=== PATIENT | female | born 1990 | race Hispanic/Latino ===

== ENCOUNTER 2019-10-02 10:31 | Emergency (ER) | payer OTHER ==
[2019-10-02 11:06] LABS: #Basophils 0.1 thou/uL (0.0-0.2); #Eosinphils 0.1 thou/uL (0.0-0.7); #Lymphocytes 2.8 thou/uL (1.20-3.40); #Monocytes 0.5 thou/uL (0.11-0.59); #Neutrophils 5.7 thou/uL (1.40-6.50); %Basophils 0.9 % (0.0-1.0); %Eosinophils 0.7 % (0.0-10.0); %Lymphocytes 30.3 % (21.0-51.0); %Monocytes 5.9 % (0.0-10.0); %Neutrophils 62.2 % (42.0-75.0); Hemoglobin 13.2 g/dL (12.0-16.0); Mean Corpuscular HGB CONC 34.5 g/dL (32.0-36.0); Mean Corpuscular Hemoglobin 30.7 pg (27.0-31.0); Mean Corpuscular Volume 88.8 fL (78.0-98.0); Mean Platelet Volume 8.2 fL (7.4-10.4); Platelet Count 240 thou/uL (130-400); RBC Distribution Width 11.9 % (11.5-14.5); White Blood Cell (WBC) Count 9.1 thou/uL (4.8-10.8)
[2019-10-02 11:31] LABS: ALT (SGPT) 26 U/L (8-55); AST (SGOT) 14 U/L (5-34); Albumin 3.7 g/dL (3.5-5.0); Alkaline Phosphatase 53 U/L (40-110); Anion Gap 12 mmol/L (10-20); BUN (Urea Nitrogen) 8 mg/dL (7.0-18.7); Bilirubin, Total 0.3 mg/dL (0.2-1.2); Calc. Creatinine Clearance 0 mL/min (70-130); Calcium 8.6 mg/dL (7.8-10.44); Carbon Dioxide 22 mmol/L (22-29); Chloride 107 mmol/L (98-107); Estimated GFR-MDRD Greater than 90; Globulin 2.6 g/dL (2.4-3.5); Glucose 82 mg/dL (70-105); Protein, Total 6.3 g/dL (6.0-8.3); Sodium 137 mmol/L (136-145)
[2019-10-02] MEDS ORDERED: Acetaminophen 325 MG TAB ONE (11:46)
[2019-10-02 12:04] LABS: Bacteria/HPF 1+ HPF (None Seen); Bilirubin Negative (Negative); Blood, Urine 2+ (Negative); Clarity Clear (Clear); Glucose, Urine (Dipstick) Normal (Negative); Leukocyte Negative Leu/uL (Negative); Nitrite Negative (Negative); Protein, Urine (Dipstick) Negative (Neg-Trace); RBC/HPF Greater than 50 HPF (0-3); Squamous Epithelial 0-3 HPF (0-3); Urobilinogen Normal mg/dL (Less than 2); WBC/HPF 0-3 HPF (0-3)
--- NOTE | 2019-10-02 12:43 | ULT ---
ULTRASOUND PELVIS WITH DOPPLER: Date: 10/02/2019 HISTORY: Vaginal bleeding with . COMPARISON: None. TECHNIQUE: Real-time Junior scale and color Doppler with spectral analysis of the pelvis was performed via transab dominal and transvaginal approach. FINDINGS: There is a single, viable intrauterine . Ultrasound age is 10 weeks and 1 day. Estimated clare e of delivery is 04/28/2020. Yolk sac is visualized measuring 6.0 mm. The heart rate is documen christian at 152 beats/minute. [place]-rump length is 2.92 cm, 9 weeks and 10 days. Gestational sac diameter is 4.88 cm, 10 weeks and 4 days. There is a small to moderate anterior subchorionic hemorrhage. There are right adnexal cysts. Left ov santiago is not visualized. IMPRESSION: 1. Normal single, viable intrauterine as described. 2. Small to moderate anterior subchorionic hemorrhage. POS: HOME
[2019-10-04 20:27] LABS: Chlamydia by PCR Not Detected (NotDetected); GC by PCR Not Detected (NotDetected)
== END 2019-10-02 13:52 | disposition home or self-care (01) ==
LOC: ERS 10:31
DX: O20.8 Other hemorrhage in early pregnancy (principal); O99.341 Other mental disorders complicating pregnancy, first trimester; F41.9 Anxiety disorder, unspecified; Z3A.09 9 weeks gestation of pregnancy
CPT/HCPCS: 36415; 76856; 80053; 81003; 81015; 84702; 85025; 86900; 86901; 87086; 87480; 87491; 87510; 87591; 87660; 88305; 93976

== ENCOUNTER 2019-10-11 01:50 | Observation (INO) | payer MEDICAID, OTHER ==
[2019-10-11] MEDS ORDERED: Ondansetron PF 4 MG/2 ML Vial ONE ×2 (02:20→04:49)
[2019-10-11 02:40] LABS: Bacteria/HPF None Seen HPF (None Seen); Bilirubin Negative (Negative); Blood, Urine Negative (Negative); Clarity Turbid (Clear); Glucose, Urine (Dipstick) Normal (Negative); Leukocyte Negative Leu/uL (Negative); Nitrite Negative (Negative); Protein, Urine (Dipstick) 70 mg/dL (Neg-Trace); RBC/HPF 0-3 HPF (0-3); Squamous Epithelial 0-3 HPF (0-3)
[2019-10-11 02:44] LABS: Mean Corpuscular HGB CONC 33.9 g/dL (32.0-36.0); Mean Corpuscular Hemoglobin 30.2 pg (27.0-31.0); Mean Corpuscular Volume 88.9 fL (78.0-98.0); Mean Platelet Volume 8.2 fL (7.4-10.4); Platelet Count 302 thou/uL (130-400); RBC Distribution Width 12.2 % (11.5-14.5); Red Blood Cell (RBC) Count 4.97 mill/uL (4.20-5.40); White Blood Cell (WBC) Count 21.3 thou/uL (4.8-10.8)
[2019-10-11 02:52] LABS: ALT (SGPT) 31 U/L (8-55); AST (SGOT) 23 U/L (5-34); Albumin 4.2 g/dL (3.5-5.0); Alkaline Phosphatase 63 U/L (40-110); Anion Gap 17 mmol/L (10-20); BUN (Urea Nitrogen) 8 mg/dL (7.0-18.7); Bilirubin, Total 0.3 mg/dL (0.2-1.2); Calc. Creatinine Clearance 0 mL/min (70-130); Calcium 9.3 mg/dL (7.8-10.44); Carbon Dioxide 23 mmol/L (22-29); Chloride 103 mmol/L (98-107); Estimated GFR-MDRD Greater than 90; Globulin 3.1 g/dL (2.4-3.5); Glucose 98 mg/dL (70-105); Potassium 3.6 mmol/L (3.5-5.1); Protein, Total 7.3 g/dL (6.0-8.3); Sodium 139 mmol/L (136-145)
[2019-10-11 03:07] LABS: Band 19 % (5-11); Lymphocytes 12 % (21-51); MDiff Complete? YES; Monocytes 4 % (0-10); Neutrophil 65 % (42-75)
[2019-10-11] MEDS ORDERED: Ondansetron ODT 4 MG TAB PO PRN (07:13)
[2019-10-11] MEDS ORDERED: Lactated Ringer's 1,000 ML IV SCH (07:15)
--- NOTE | 2019-10-11 07:56 | ULT ---
PRELIMINARY REPORT/[facility]/EMERGENCY AFTER HOURS PROCEDURE EXAM: US Abdomen Limited, Appendix. CLINICAL HISTORY: RLQ pain, N/V, R/O appendicitis TECHNIQUE: Real-time ultrasound of the right lower quadrant with image documentation. COMPARISON: None provided. FINDINGS: APPENDIX: The appendix is not well visualized. BOWEL: No abnormality appreciated. OTHER: No fluid collections or masses. No free fluid. There is single live intrauterine wit h the heart activity measured at 163 bpm. There are multiple cysts in the right ovary. IMPRESSION: Nonvisualized appendix. ELECTRONICALLY SIGNED BY: Donny Robles MD October 11, 2019 4:09:15 AM CDT FINAL REPORT ULTRASOUND ABDOMEN LIMITED APPENDIX: I agree with the preliminary report given by Dr. Bushra Robles of [facility]. POS: [facility]
--- NOTE | 2019-10-11 08:12 | HP ---
PRIMARY OB: Dr. Michi Austin. CHIEF COMPLAINT: Vomiting blood and abdominal pain. HISTORY OF PRESENT ILLNESS: The patient is a 29-year-old G5, P4 female with an intrauterine at about 11 weeks gestation, who began having persistent nausea and vomiting approximately 1 day ago. She has been unable to keep fluids and solids down. By this morning, the patient reported starting to vomit blood and became concerned and came to the emergency room. During her workup downstairs, the patient was noted to have a white count of 21,000, and abdominal pain. Ultrasound of the appendix was performed, which was nondiagnostic. ER physician was concerned about the patient's risk for appendicitis and asked if the patient could be observed for serial exams and the patient was subsequently brought to the floor for evaluation. At time of arrival, I was notified and came to see the patient. The patient confirms her story. Her primary concern is the nausea and vomiting. She believes her abdominal pain is muscular tenderness from the persistent vomiting that she has had in last 24 hours. She does report 2 umbilical hernias and a history of a subchorionic hemorrhage, for which she has been having spotting. Her last appointment with Dr. Austin, her primary OB, was yesterday. The patient denies fever. She does report intermittent headaches, that she has had since before the . Denies cough, shortness of breath, chest pain. The patient has been having persistent nausea and vomiting. Denies diarrhea or constipation, which has been resolved by stool softeners. Denies any new rashes, hip problems, knee problems, muscle weakness. Denies urinary urgency or frequency and again reports vaginal spotting. The patient was given 2 L of IV fluids and a total of 8 mg of Zofran downstairs in the emergency room. PAST MEDICAL HISTORY: 1. Umbilical hernias. 2. Anxiety. PAST SURGICAL HISTORY: Hernia repair. SOCIAL HISTORY: Denies drug, alcohol, or tobacco use. ALLERGIES: NO KNOWN DRUG ALLERGIES. MEDICATIONS: vitamins and a stool softener. OB LABS: Unavailable at time of dictation. OB HISTORY: She has had 4 vaginal deliveries. REVIEW OF SYSTEMS: Per HPI. PHYSICAL EXAMINATION: VITAL SIGNS: Blood pressure 105/51, temperature 98.6, pulse of 82, respiratory rate 18, saturating 99% on room air. GENERAL: She appears to be in no acute distress. She is alert, oriented, cooperative, and pleasant to interact with. HEAD: Normocephalic, atraumatic. LUNGS: Clear to auscultation bilaterally. HEART: Regular rate and rhythm. ABDOMEN: Soft. Trachea along the midline. Again, reported by the patient is being more muscular tenderness. She has some lower pelvic tenderness bilaterally, that she attributes to her subchorionic hemorrhage as these has been present and persistent. There is no guarding. No peritoneal signs. No rebound. EXTREMITIES: Nontender. Nonedematous. : Deferred at this time. DIAGNOSTIC DATA: Abdominal ultrasound final results are not available. However, ER provider reported preliminary results to me with no findings consistent with appendicitis. ASSESSMENT AND PLAN: The patient is a 29-year-old female with an intrauterine approximately 11 weeks gestation, here for persistent nausea and vomiting. The bleeding that she has had was likely secondary to esophageal irritation or Clarisa-Torres due to her vomiting. Vomiting seems to be under control now with 8 mg of Zofran. She has been hydrated with 2 L of IV fluids. The patient here will be admitted to observation. Continue to be hydrated and treat with antiemetics. Serial abdominal exams will be performed as necessary, though my concerns for appendicitis is very low. The patient reported heart tones were obtained downstairs in the emergency room of her child and reported is 156. Anticipate discharge later today, will be at notifying Dr. Austin, of the patient's presence. Job ID: [id number]
[2019-10-11] MEDS ORDERED: Lactated Ringer's 500 ML IV SCH (09:00)
[2019-10-11] MEDS: Lactated Ringer's 1,000 ML IV SCH ×2 (09:12→12:16)
[2019-10-11 09:14] VITALS: BMI 33.3
[2019-10-11] MEDS ORDERED: Acetaminophen 325 MG TAB PO PRN (11:00)
[2019-10-11 11:10] VITALS: BP 90/54; TEMP 98.8
--- NOTE | 2019-10-11 14:57 | PDOC.EVN ---
Event Note - Event Note Event Note: Feeling much better, wants to go home. Tolerated clear liquid tray. VSS AF Abdomen is soft and NT, no guarding or rebound. UC is negative so far. Plan: DC home per request. RTC with Dr. Austin in 1-2 weeks. Rx. for Zofran 4 mg #30 prn N/V given.
== END 2019-10-11 17:05 | disposition home or self-care (01) ==
LOC: ERS 01:50 → 3SW 04:30
PROVIDERS: ADMIT Obstetrics & Gynecology; ATTEND Obstetrics & Gynecology
DX: O21.9 Vomiting of pregnancy, unspecified (principal); O99.611 Diseases of the digestive system complicating pregnancy, first trimester; K92.0 Hematemesis; K59.00 Constipation, unspecified; O99.89 Other specified diseases and conditions complicating pregnancy, childbirth and the puerperium; R10.9 Unspecified abdominal pain; O99.341 Other mental disorders complicating pregnancy, first trimester; F41.9 Anxiety disorder, unspecified; O26.851 Spotting complicating pregnancy, first trimester; Z3A.11 11 weeks gestation of pregnancy; Z79.899 Other long term (current) drug therapy
CPT/HCPCS: 76705; 80053; 81003; 81015; 84702; 85025; 87086; 96361; 96374; 96376; G0378; J2405; Q0162

== ENCOUNTER 2019-12-06 20:49 | Day surgery (SDC) | payer OTHER ==
[2019-12-06 21:21] VITALS: BP 116/62; TEMP 98.8; BMI 34.7
[2019-12-06] MEDS ORDERED: hydrALAZINE 20 MG/ML VIAL SLOW IVP PRN (22:09)
[2019-12-06 22:29] LABS: Bacteria/HPF None Seen HPF (None Seen); Bilirubin Negative (Negative); Blood, Urine Negative (Negative); Clarity Clear (Clear); Glucose, Urine (Dipstick) 50 mg/dL (Negative); Ketone, Urine Negative (Negative); Leukocyte Negative Leu/uL (Negative); Nitrite Negative (Negative); Protein, Urine (Dipstick) Negative (Neg-Trace); RBC/HPF 0-3 HPF (0-3); Specific Gravity, Urine 1.015 (1.002-1.036); Squamous Epithelial 0-3 HPF (0-3); Urobilinogen Normal mg/dL (Less than 2); WBC/HPF 0-3 HPF (0-3)
--- NOTE | 2019-12-07 00:51 | PRG ---
DATE OF SERVICE: 12/06/2019 PRIMARY OB: Michi Austin MD CHIEF COMPLAINT: Abdominal and back pain. HISTORY OF PRESENT ILLNESS: The patient is a 29-year-old G5, P4 female with an intrauterine at 19 weeks and 4 days, presenting to Labor and Delivery with a 1-day history of abdominal pain and back pain. She reports her abdominal pain is lasting 1 to 2 minutes, coming about every 10 minutes. She denies that it is painful, but more present. She also reports that she has been having back pain for several weeks, making activity movement more unbearable. She reports a history of labor with her first resulting in rest of dilation at 5 cm at 26 weeks and delivered at 37 weeks. She reports her subsequent three children also born at term without any complications. This has been complicated by subchorionic hemorrhage early on, but denies any other complications at this point. She denies fever, headache, chest pain, or shortness of breath. She does report nausea with occasional vomiting. She denies diarrhea. Reports constipation where she has a bowel movement every 4 to 5 days on stool softeners. She denies any new significant rashes. She denies any vaginal bleeding or leakage of fluid. She does report recently completing a prescription of metronidazole for bacterial vaginosis. She reports that she has had a little bit of increased discharge in the last couple days. She denies vaginal bleeding. She denies urinary urgency or frequency. The patient denies recent intercourse. PAST MEDICAL HISTORY: She has anxiety and umbilical hernia. PAST SURGICAL HISTORY: Hernia repair for one. SOCIAL HISTORY: Denies drug, alcohol, or tobacco use. ALLERGIES: NO KNOWN DRUG ALLERGIES. MEDICATIONS: vitamins and stool softeners. OB LABS: Unavailable at the time of dictation. REVIEW OF SYSTEMS: Per HPI. PHYSICAL EXAMINATION: VITAL SIGNS: Blood pressure 116/62, heart rate of 86, respiratory rate of 18, saturating 99% on room air, temperature 98.0. GENERAL: She appears to be in some mild distress. She is otherwise alert and oriented, cooperative and pleasant to interact with. HEAD: Normocephalic, atraumatic. LUNGS: Clear to auscultation bilaterally. HEART: Regular rate and rhythm. ABDOMEN: Gravid. Soft and nontender. She does have some significant left upper gluteal pain. EXTREMITIES: Nontender, nonedematous. Vulva is without masses, lesions, or erythema. Vagina is moist. She does have a bit of discharge, kind of yellow mucousy discharge present. Cervix is difficult to see, but appears to be closed. On digital exam, cervix is closed and thick with cervix feeling multiparous. VP3 was collected and sent. Urinalysis also collected and sent. LABORATORY DATA: heart tracing shows heart tones in the 140s. Urinalysis is negative for protein, blood, nitrites, leukocyte esterase, white blood cells, squamous cells, and bacteria. VP3 is negative for Trichomonas Gardnerella and Kasey. ASSESSMENT AND PLAN: The patient is a 29-year-old female with no evidence of labor or vaginal infection or urinary tract infection at this time. On re-examination, patient reports her primary pain is being in her back and is attempting to see a chiropractor. We spent about 10 minutes going through a series of stretches to help strengthen and lengthen the muscles in her pelvis than upper legs and gluteal region. The patient reports that she did feel some improvement and has been counseled to do this twice a day with sets of 3. The patient is being discharged home with previable labor precautions. Job ID: [id number]
== END 2019-12-06 23:45 | disposition home or self-care (01) ==
LOC: L&D/OP 20:49
PROVIDERS: ATTEND Family Medicine
DX: O99.89 Other specified diseases and conditions complicating pregnancy, childbirth and the puerperium (principal); R10.9 Unspecified abdominal pain; M54.9 Dorsalgia, unspecified; Z3A.19 19 weeks gestation of pregnancy
CPT/HCPCS: 81001; 87480; 87510; 87660; 99285

== ENCOUNTER 2022-10-10 16:37 | Emergency (ER) | payer OTHER ==
[2022-10-10 17:01] LABS: #Eosinphils 0.1 thou/uL (0.0-0.7); #Monocytes 0.6 thou/uL (0.11-0.59); #Neutrophils 6.4 thou/uL (1.40-6.50); %Basophils 0.3 % (0.0-1.0); %Eosinophils 0.6 % (0.0-10.0); %Lymphocytes 23.4 % (21.0-51.0); %Monocytes 6.2 % (0.0-10.0); %Neutrophils 69.2 % (42.0-75.0); Hemoglobin 12.5 g/dL (12.0-16.0); Mean Corpuscular HGB CONC 32.6 g/dL (32.0-36.0); Mean Corpuscular Hemoglobin 27.8 pg (27.0-31.0); Mean Corpuscular Volume 85.3 fl (78.0-98.0); Mean Platelet Volume 10.8 fL (7.4-10.4); Platelet Count 301 10x3/uL (130-400); RBC Distribution Width 13.8 % (11.5-14.5); White Blood Cell (WBC) Count 9.3 10x3/uL (4.8-10.8)
[2022-10-10 17:25] LABS: ALT (SGPT) 121 U/L (8-55); AST (SGOT) 146 U/L (5-34); Albumin 4.2 g/dL (3.5-5.0); Alkaline Phosphatase 74 U/L (40-110); Anion Gap 14 mmol/L (10-20); BUN (Urea Nitrogen) 8 mg/dL (7.0-18.7); Bilirubin, Total 0.3 mg/dL (0.2-1.2); Calc. Creatinine Clearance 0 mL/min (70-130); Carbon Dioxide 22 mmol/L (22-29); Chloride 105 mmol/L (98-107); Estimated GFR 101; Globulin 2.5 g/dL (2.4-3.5); Glucose 117 mg/dL (70-105); Protein, Total 6.7 g/dL (6.0-8.3); Sodium 137 mmol/L (136-145)
[2022-10-10] MEDS ORDERED: Ondansetron PF 4 MG/2 ML Vial ONE (17:29)
[2022-10-10 17:34] LABS: Magnesium 2.3 mg/dL (1.6-2.6)
[2022-10-10 18:07] LABS: Bacteria/HPF None Seen HPF (None Seen); Bilirubin Negative (Negative); Blood, Urine Negative (Negative); Clarity Clear (Clear); Glucose, Urine (Dipstick) Normal (Negative); Ketone, Urine 40 mg/dL (Negative); Leukocyte 250 Leu/uL (Negative); Nitrite Negative (Negative); Protein, Urine (Dipstick) 70 mg/dL (Neg-Trace); RBC/HPF 0-3 HPF (0-3); Specific Gravity, Urine 1.031 (1.002-1.036); Squamous Epithelial 0-3 HPF (0-3); WBC/HPF 0-3 HPF (0-3)
[2022-10-10 18:10] LABS: Pregnancy Test - Urine (BHCG) Negative (Negative); Pregu Control Background? CLEAR/WHITE (CLR/WHITE); Pregu Control Bar Appear? YES (CONTROL BAR); Specific Gravity 1.031 (1.002-1.036)
== END 2022-10-10 18:58 | disposition home or self-care (01) ==
LOC: ERS 16:37
DX: R53.81 Other malaise (principal); F43.20 Adjustment disorder, unspecified; R80.9 Proteinuria, unspecified; R74.01 Elevation of levels of liver transaminase levels; F17.210 Nicotine dependence, cigarettes, uncomplicated
CPT/HCPCS: 80053; 81003; 81015; 81025; 83690; 83735; 85025; 93005; 96374; J2405

== ENCOUNTER 2023-06-19 23:41 | Emergency (ER) | payer OTHER, SELFPAY ==
[2023-06-20 00:09] LABS: Bilirubin Negative (Negative); Blood, Urine 2+ (Negative); Clarity Turbid (Clear); Glucose, Urine (Dipstick) Normal (Negative); Ketone, Urine Trace mg/dL (Negative); Leukocyte 500 Leu/uL (Negative); Nitrite Negative (Negative); Protein, Urine (Dipstick) 30 mg/dL (Neg-Trace); pH, Urine 5.5 (5.0-9.0)
[2023-06-20 00:10] LABS: CAUTI Indications for Culture Pelvic or flank pain; WBC/HPF Greater than 50 HPF (0-3)
[2023-06-20 00:12] LABS: Bacteria/HPF 1+ HPF (None Seen); Pregnancy Test - Urine (BHCG) Negative (Negative); Pregu Control Background? CLEAR/WHITE (CLR/WHITE); Pregu Control Bar Appear? YES (CONTROL BAR); Urine Culture Reflex Yes Yes
[2023-06-20 00:24] LABS: #Eosinphils 0.1 thou/uL (0.0-0.7); #Monocytes 0.7 thou/uL (0.11-0.59); #Neutrophils 3.7 thou/uL (1.40-6.50); %Basophils 0.4 % (0.0-1.0); %Eosinophils 1.9 % (0.0-10.0); %Lymphocytes 31.3 % (21.0-51.0); %Monocytes 10.3 % (0.0-10.0); Hematocrit 37.1 % (36.0-47.0); Hemoglobin 12.1 g/dL (12.0-16.0); Mean Corpuscular HGB CONC 32.6 g/dL (32.0-36.0); Mean Corpuscular Hemoglobin 28.2 pg (27.0-31.0); Mean Corpuscular Volume 86.5 fl (78.0-98.0); Mean Platelet Volume 10.6 fL (7.4-10.4); Platelet Count 259 10x3/uL (130-400); RBC Distribution Width 13.6 % (11.5-14.5); Red Blood Cell (RBC) Count 4.29 mill/uL (4.20-5.40); White Blood Cell (WBC) Count 6.7 10x3/uL (4.8-10.8)
[2023-06-20 00:47] LABS: ALT (SGPT) 35 U/L (8-55); AST (SGOT) 31 U/L (5-34); Alkaline Phosphatase 66 U/L (40-110); Anion Gap 13 mmol/L (10-20); BUN (Urea Nitrogen) 12 mg/dL (7.0-18.7); Bilirubin, Total 0.2 mg/dL (0.2-1.2); Calc. Creatinine Clearance 0 mL/min (70-130); Calcium 8.6 mg/dL (7.8-10.44); Carbon Dioxide 21 mmol/L (22-29); Chloride 108 mmol/L (98-107); Estimated GFR 100; Globulin 2.7 g/dL (2.4-3.5); Glucose 107 mg/dL (70-105); Potassium 4.2 mmol/L (3.5-5.1); Protein, Total 6.7 g/dL (6.0-8.3); Sodium 138 mmol/L (136-145)
[2023-06-20] MEDS ORDERED: Ketorolac Tromethamine 30 MG (1 mL) VIAL ONE (01:19)
[2023-06-20] MEDS ORDERED: Ondansetron PF 4 MG/2 ML Vial ONE (01:19)
[2023-06-20 02:32] LABS: BHCG - Serum Negative (NEGATIVE); Pregs Control Background? CLEAR/WHITE (CLR/WHITE); Pregs Control Bar Appear? YES (CONTROL BAR)
[2023-06-20] MEDS ORDERED: cefTRIAXone (ROCEPHIN) 2 GM VIAL ONE (03:21)
== END 2023-06-20 05:18 | disposition home or self-care (01) ==
LOC: ERS 23:41
DX: N10 Acute pyelonephritis (principal); N83.209 Unspecified ovarian cyst, unspecified side; F17.210 Nicotine dependence, cigarettes, uncomplicated
CPT/HCPCS: 36415; 74176; 76856; 80053; 81001; 81025; 83690; 84703; 85025; 87086; 96374; 96375; J0696; J1885; J2405